=== PATIENT | male | born 1960 | race Caucasian/White ===

== ENCOUNTER → 2016-10-05 | Outpatient (CLI) | payer OTHER ==
[~2016-10-05] MED LIST: LITH600C
[2016-10-05 12:50] LABS: BASO % 0.9 % (0.0-1.0); EOS # 0.6 K/mm3 (0.0-0.50); LARGE UNSTAINED CELL # 0.1 K/mm3 (0.0-0.4); LARGE UNSTAINED CELL % 2.6 % (0.0-4.0); LYMPH # 1.4 K/mm3 (1.5-4.5); LYMPH % 22.8 % (24.0-44.0); MEAN CORPUSCULAR HEMOGLOBIN 32.7 pg (27.0-33.0); MEAN CORPUSCULAR HGB CONC 34.3 g/dl (32.0-36.5); MEAN CORPUSCULAR VOLUME 95.3 fl (80.0-96.0); MONO # 0.4 K/mm3 (0.0-0.8); MONO % 6.8 % (0.0-5.0); NEUTROPHILS # 2.9 K/mm3 (1.8-7.7); NEUTROPHILS % 54.9 % (36.0-66.0); PLATELET COUNT, AUTOMATED 217 k/mm3 (150-450); WHITE BLOOD COUNT 5.4 K/mm3 (4.0-10.0)
[2016-10-05 13:24] LABS: ALBUMIN/GLOBULIN RATIO 1.14 (1.00-1.93); ALKALINE PHOSPHATASE 101 U/L (45-117); ALT/SGPT 45 U/L (12-78); ANION GAP 11 MEQ/L (8-16); AST/SGOT 19 U/L (15-37); BILIRUBIN,TOTAL 0.8 MG/DL (0.2-1.0); BLOOD UREA NITROGEN 17 MG/DL (7-18); CALCIUM LEVEL 9.6 MG/DL (8.5-10.1); CARBON DIOXIDE LEVEL 24 MEQ/L (21-32); CHLORIDE LEVEL 113 MEQ/L (98-107); CREATININE FOR GFR 1.28 MG/DL (0.70-1.30); GLOMERULAR FILTRATION RATE > 60.0 (>56); GLUCOSE, FASTING 101 MG/DL (70-105); POTASSIUM SERUM 3.9 MEQ/L (3.5-5.1); SODIUM LEVEL 148 MEQ/L (136-145); TOTAL PROTEIN 7.5 GM/DL (6.4-8.2)
[2016-10-05 13:26] LABS: LITHIUM LEVEL 0.62 MEQ/L (0.60-1.20)
== END ==
LOC: M WUC 08:29
PROVIDERS: ATTEND Internal Medicine
DX: I10 Essential (primary) hypertension (principal); F31.32 Bipolar disorder, current episode depressed, moderate; E83.52 Hypercalcemia

== ENCOUNTER → 2016-12-18 | Outpatient (REF) | payer OTHER | LOC: M SFHCLERA 10:22 | PROVIDERS: ATTEND Physician Assistant | DX: J02.9 Acute pharyngitis, unspecified (principal) ==

== ENCOUNTER 2017-07-26 07:19 | Inpatient (IN) | payer OTHER ==
[2017-07-26 08:13] LABS: HEMATOCRIT 47.6 % (42.0-52.0); HEMOGLOBIN 16.2 g/dl (13.5-17.5); MEAN CORPUSCULAR HEMOGLOBIN 30.1 pg (27.0-33.0); MEAN CORPUSCULAR VOLUME 88.5 fl (80.0-96.0); PLATELET COUNT, AUTOMATED 268 10^3/uL (150-450); RED BLOOD COUNT 5.38 10^6/uL (4.30-6.10); RED CELL DISTRIBUTION WIDTH 12.3 % (11.5-14.5); WHITE BLOOD COUNT 5.3 10^3/uL (4.0-10.0)
[2017-07-26 08:32] LABS: AMPHETAMINES LEVEL URINE NEGATIVE (NEGATIVE); BARBITURATES URINE NEGATIVE (NEGATIVE); BENZODIAZEPINES URINE NEGATIVE (NEGATIVE); CANNABINOIDS URINE NEGATIVE (NEGATIVE); COCAINE METABOLITE URINE NEGATIVE (NEGATIVE); METHADONE URINE NEGATIVE (NEGATIVE); OPIATES URINE NEGATIVE (NEGATIVE); PHENCYCLIDINE URINE NEGATIVE (NEGATIVE)
[2017-07-26 08:41] LABS: ALBUMIN 4.1 GM/DL (3.2-5.2); ALBUMIN/GLOBULIN RATIO 1.11 (1.00-1.93); ALKALINE PHOSPHATASE 122 U/L (45-117); ALT/SGPT 49 U/L (12-78); ANION GAP 5 MEQ/L (8-16); AST/SGOT 24 U/L (7-37); BILIRUBIN,DIRECT 0.3 MG/DL (0.0-0.2); BILIRUBIN,TOTAL 1.5 MG/DL (0.2-1.0); BLOOD UREA NITROGEN 23 MG/DL (7-18); CALCIUM LEVEL 9.6 MG/DL (8.5-10.1); CARBON DIOXIDE LEVEL 29 MEQ/L (21-32); CHLORIDE LEVEL 110 MEQ/L (98-107); CREATININE FOR GFR 1.44 MG/DL (0.70-1.30); GLUCOSE, FASTING 85 MG/DL (70-100); SALICYLATE LEVEL < 1.7 MG/DL (5.0-30.0); SODIUM LEVEL 144 MEQ/L (136-145); THYROID STIMULATING HORMONE 0.361 uIU/ML (0.358-3.740); TOTAL PROTEIN 7.8 GM/DL (6.4-8.2)
[2017-07-26 08:42] LABS: ACETAMINOPHEN LEVEL < 2.0 UG/ML (10.0-30.0); ETHYL ALCOHOL (ETHANOL) < 0.003 % (0.000-0.010)
[2017-07-26] MEDS ORDERED: MAALOX 30 ML SUSP *UDC PO (09:45)
[2017-07-26] MEDS ORDERED: MOM 30ML SUSPENSION UDC PO (09:45)
[2017-07-26] MEDS ORDERED: ACETAMINOPHEN TAB 650MG DOSE (2X325MG) PO (09:45)
[2017-07-26] MEDS ORDERED: ZIPRASIDONE 20MG CAPSULE (GEODON) PO ×2 (18:00)
[2017-07-26] MEDS: ZIPRASIDONE 20MG CAPSULE (GEODON) PO (20:38)
[2017-07-26] MEDS: CARVedilol 3.125 MG TAB PO (20:40)
[2017-07-26] MEDS: hydrOXYzine 50 MG TAB PO (21:35)
[2017-07-27 07:42] LABS: ANION GAP 8 MEQ/L (8-16); BLOOD UREA NITROGEN 25 MG/DL (7-18); CALCIUM LEVEL 9.7 MG/DL (8.5-10.1); CARBON DIOXIDE LEVEL 28 MEQ/L (21-32); CHLORIDE LEVEL 108 MEQ/L (98-107); CREATININE FOR GFR 1.42 MG/DL (0.70-1.30); GLOMERULAR FILTRATION RATE 54.9 (>56); GLUCOSE, FASTING 96 MG/DL (70-100); POTASSIUM SERUM 4.4 MEQ/L (3.5-5.1); SODIUM LEVEL 144 MEQ/L (136-145)
[2017-07-27] MEDS: amLODIPine 10 MG TAB PO (08:21)
[2017-07-27] MEDS: PARoxetine 12.5 MG **CR** TAB PO (08:22)
[2017-07-27] MEDS: CARVedilol 3.125 MG TAB PO ×2 (08:22→21:07)
[2017-07-27] MEDS: aMILoride 5 MG TAB PO (08:22)
[2017-07-27] MEDS: hydrOXYzine 50 MG TAB PO (16:19)
[2017-07-27] MEDS: PILL CRUSHER/CUTTER 1 EACH XX (21:00)
[2017-07-27] MEDS: ZIPRASIDONE 20MG CAPSULE (GEODON) PO (21:03)
[2017-07-27] MEDS: traZODone 50 MG TAB PO (21:37)
[2017-07-28] MEDS: aMILoride 5 MG TAB PO (08:27)
[2017-07-28] MEDS: CARVedilol 3.125 MG TAB PO ×2 (08:27→20:33)
[2017-07-28] MEDS: amLODIPine 10 MG TAB PO (08:28)
[2017-07-28] MEDS: PARoxetine 12.5 MG **CR** TAB PO (08:28)
[2017-07-28] MEDS: hydrOXYzine 50 MG TAB PO ×2 (09:54→20:32)
[2017-07-29] MEDS: PARoxetine 12.5 MG **CR** TAB PO (08:32)
[2017-07-29] MEDS: hydrOXYzine 50 MG TAB PO (08:33)
[2017-07-29] MEDS: amLODIPine 10 MG TAB PO (08:33)
[2017-07-29] MEDS: CARVedilol 3.125 MG TAB PO ×2 (08:34→20:22)
[2017-07-29] MEDS: aMILoride 5 MG TAB PO (09:00)
[2017-07-29 11:25] LABS: ALBUMIN 4.2 GM/DL (3.2-5.2); ALBUMIN/GLOBULIN RATIO 1.24 (1.00-1.93); ALKALINE PHOSPHATASE 122 U/L (45-117); ALT/SGPT 47 U/L (12-78); ANION GAP 8 MEQ/L (8-16); AST/SGOT 23 U/L (7-37); BILIRUBIN,TOTAL 1.2 MG/DL (0.2-1.0); BLOOD UREA NITROGEN 25 MG/DL (7-18); CALCIUM LEVEL 9.7 MG/DL (8.5-10.1); CARBON DIOXIDE LEVEL 29 MEQ/L (21-32); CHLORIDE LEVEL 105 MEQ/L (98-107); CREATININE FOR GFR 1.37 MG/DL (0.70-1.30); GLOMERULAR FILTRATION RATE 57.2 (>56); GLUCOSE, FASTING 88 MG/DL (70-100); POTASSIUM SERUM 4.6 MEQ/L (3.5-5.1); SODIUM LEVEL 142 MEQ/L (136-145); TOTAL PROTEIN 7.6 GM/DL (6.4-8.2)
[2017-07-30] MEDS: PARoxetine 12.5 MG **CR** TAB PO (08:27)
[2017-07-30] MEDS: PROPRANOLOL 10 MG TAB PO (08:27)
[2017-07-30] MEDS: CARVedilol 3.125 MG TAB PO ×2 (08:28→20:19)
[2017-07-30] MEDS: amLODIPine 10 MG TAB PO (08:28)
[2017-07-30] MEDS: aMILoride 5 MG TAB PO (08:28)
[2017-07-30] MEDS: ARIPiprazole 10 MG TAB PO (20:17)
[2017-07-31] MEDS: CARVedilol 3.125 MG TAB PO ×2 (08:33→20:22)
[2017-07-31] MEDS: amLODIPine 10 MG TAB PO (08:33)
[2017-07-31] MEDS: aMILoride 5 MG TAB PO (08:34)
[2017-07-31] MEDS: PARoxetine 12.5 MG **CR** TAB PO (08:34)
[2017-07-31] MEDS: ARIPiprazole 10 MG TAB PO (20:22)
[2017-07-31] MEDS: PROPRANOLOL 10 MG TAB PO (20:24)
[2017-08-01] MEDS: aMILoride 5 MG TAB PO (08:29)
[2017-08-01] MEDS: CARVedilol 3.125 MG TAB PO ×2 (08:29→20:11)
[2017-08-01] MEDS: PARoxetine 12.5 MG **CR** TAB PO (08:29)
[2017-08-01] MEDS: amLODIPine 10 MG TAB PO (08:30)
[2017-08-01] MEDS: PROPRANOLOL 10 MG TAB PO ×2 (12:24→20:11)
[2017-08-01] MEDS: ARIPiprazole 10 MG TAB PO (20:11)
[2017-08-01] MEDS: traZODone 50 MG TAB PO (21:16)
[2017-08-02] MEDS: amLODIPine 10 MG TAB PO (08:15)
[2017-08-02] MEDS: aMILoride 5 MG TAB PO (08:15)
[2017-08-02] MEDS: PARoxetine 12.5 MG **CR** TAB PO (08:15)
[2017-08-02] MEDS: CARVedilol 3.125 MG TAB PO ×2 (08:15→20:17)
[2017-08-02] MEDS: PROPRANOLOL 10 MG TAB PO ×3 (11:44→20:17)
[2017-08-02] MEDS: ARIPiprazole 10 MG TAB PO (20:16)
[2017-08-02] MEDS: traZODone 50 MG TAB PO (23:19)
[2017-08-03] MEDS: amLODIPine 10 MG TAB PO (08:27)
[2017-08-03] MEDS: aMILoride 5 MG TAB PO (08:27)
[2017-08-03] MEDS: PARoxetine 12.5 MG **CR** TAB PO (08:27)
[2017-08-03] MEDS: PROPRANOLOL 10 MG TAB PO ×3 (08:27→20:25)
[2017-08-03] MEDS: CARVedilol 3.125 MG TAB PO ×2 (08:27→20:25)
[2017-08-03] MEDS: ARIPiprazole 10 MG TAB PO (20:24)
[2017-08-03] MEDS: GABAPENTIN 100 MG CAP PO (20:24)
[2017-08-04] MEDS: PARoxetine 12.5 MG **CR** TAB PO (08:28)
[2017-08-04] MEDS: aMILoride 5 MG TAB PO (08:29)
[2017-08-04] MEDS: amLODIPine 10 MG TAB PO (08:29)
[2017-08-04] MEDS: PROPRANOLOL 10 MG TAB PO ×3 (08:29→20:11)
[2017-08-04] MEDS: CARVedilol 3.125 MG TAB PO ×2 (08:29→20:11)
[2017-08-04] MEDS: ARIPiprazole 10 MG TAB PO (20:11)
[2017-08-04] MEDS: GABAPENTIN 100 MG CAP PO (20:12)
[2017-08-05] MEDS: PARoxetine 12.5 MG **CR** TAB PO (08:23)
[2017-08-05] MEDS: aMILoride 5 MG TAB PO (08:23)
[2017-08-05] MEDS: PROPRANOLOL 10 MG TAB PO (08:23)
[2017-08-05] MEDS: amLODIPine 10 MG TAB PO (08:23)
[2017-08-05] MEDS: CARVedilol 3.125 MG TAB PO (08:23)
[2017-08-05] MEDS ORDERED: ARIPiprazole 10 MG TAB PO (21:00)
== END 2017-08-05 14:35 | disposition home or self-care (01) | DRG 885 ==
LOC: M ED 07:19 → M ED INP 09:32 → M PSY 11:00
DX: F31.9 Bipolar disorder, unspecified (principal); F41.1 Generalized anxiety disorder; I10 Essential (primary) hypertension; R79.89 Other specified abnormal findings of blood chemistry